=== PATIENT | female | born 1965 | race Caucasian/White ===

== ENCOUNTER 2019-03-18 11:19 | Inpatient (IN) ==
--- NOTE | 2019-03-18 11:44 | Diag Imaging Result Doc PS360 ---
EXAM: CT HEAD W/O CONTRAST 03/18/2019 HISTORY: stroke like symptoms TECHNIQUE: This exam was performed using automated exposure control, adjustment of mA or kV according to patient size, and/or use of iterative reconstruction technique. COMMENT: There is no evidence of mass effect, bleed, or abnormal extra-axial fluid collection. There is a small lacunar lucency in the globus pallidus on the left which was apparently present at the time the previous study. The calvarium is intact. The visualized paranasal sinuses are clear. Compared to 09/08/2017 there has been no significant change in the appearance of the brain. IMPRESSION: Minimal chronic ischemic change in the left basal ganglia. No evidence of acute intracranial disease. Electronically signed by Oskar Roblero 03/18/2019 11:41 AM
[2019-03-18] MEDS ORDERED: MORPHINE IV ONE ×2 (12:41→17:09)
[2019-03-18] MEDS ORDERED: ZOFRAN IV ONE (12:42)
[2019-03-18] MEDS ORDERED: NS 1,000 ML IV ONE ×2 (12:42→13:23)
--- NOTE | 2019-03-18 13:11 | EKG Report ---
Test Performed on : 03/18/2019 11:44:14 AM Test Reason : ED. NO EKG ORDER FOR MUSE Blood Pressure : / mmHG Vent. Rate : 088 BPM Atrial Rate : 088 BPM P-R Int : 150 ms QRS Dur : 068 ms QT Int : 362 ms P-R-T Axes : 064 038 039 degrees QTc Int : 438 ms Normal sinus rhythm. Normal ECG When compared with ECG of 30-SEP-2017 17:35, No significant change was found Unconfirmed Result
--- NOTE | 2019-03-18 14:23 | Diag Imaging Result Doc PS360 ---
CT LUMBAR SPINE W/O CONTRAST - 03/18/2019 INDICATION: BACK PAIN COMPARISON: None FINDINGS: Alignment is anatomic. No fracture or subluxation. Vertebral body heights and intervertebral disc spaces are preserved. There is some mild degenerative osteophytes at L3-L4 and L4-L5. No large disc bulge or herniation. No central canal stenosis. Soft tissues are clear. IMPRESSION: Early lumbar spondylosis. No acute disease. This exam was performed using automated exposure control, adjustment of mA or kV according to patient size, and/or use of iterative reconstruction technique Electronically signed by Xavier Browne 03/18/2019 2:21 PM
[2019-03-18] MEDS ORDERED: PERCOCET-5 PO ONE (15:23)
[2019-03-18 15:45] LABS: AGAP 8; BUN 7 mg/dL (8-22); CHLORIDE 124 mmol/L (98-107); COSMO 282; CREATININE 0.3 mg/dL (0.5-0.9); ESTIMATED GFR > 60; GLUCOSE 49 mg/dL (70-104); POTASSIUM 2.8 mmol/L (3.5-5.1); SODIUM 144 mmol/L (136-145); TCO2 12 mmol/L (25-35)
[2019-03-18 15:46] LABS: CALCIUM 4.5 mg/dL (8.8-10.2)
[2019-03-18] MEDS ORDERED: POTASSIUM CHLORIDE 20% LIQUID PO ONE (15:47)
[2019-03-18] MEDS ORDERED: CALCIUM GLUCONATE 1 GM in NS 50 ML IV ONE ×2 (15:47→18:56)
[2019-03-18] MEDS ORDERED: POTASSIUM CHLORIDE 10 MEQ in D5 LR 1,000 ML IV ONE (15:48)
[2019-03-18] MEDS ORDERED: D50W SYRINGE IV ONE (16:02)
--- NOTE | 2019-03-18 18:19 | PROVIDER DOCUMENTATION ---
This chart was entered by Fanny Webster Scribe, acting as scribe for Kole Augustin MD. HPI-Neurological Disorder - General Stated Complaint: stroke like symptoms Time Seen by Provider: 03/18/19 11:39 Source: patient, EMS (first response) Unable to obtain history due to:: urgency Allergies/Adverse Reactions: Patient Allergies Allergy/AdvReac Type Severity Reaction Status Date / Time ibuprofen Allergy HIVES Verified 11/13/17 18:38 latex Allergy Unknown Verified 11/13/17 18:38 NSAIDS (Non-Steroidal Allergy Unknown Verified 11/13/17 18:38 Anti-Inflamma Penicillins Allergy HIVES Verified 11/13/17 18:38 tomato Allergy Unknown Verified 05/12/18 07:31 tramadol Allergy HIVES Verified 11/13/17 18:38 Home Medications: Home Medication List Medication Instructions Recorded Confirmed Last Taken Type Cyanocobalamin (Vitamin B-12) 1,000 mcg IJ Q7D 05/11/18 03/18/19 Unknown History [Cyanocobalamin Injection] Oxycodone/APAP 5 mg/325 mg 1 each PO 4XDAY PRN 05/11/18 03/18/19 Unknown History [Percocet-5] Prazosin [Minipress] 1 mg PO QHS 05/11/18 03/18/19 Unknown History Albuterol Sulfate [Proair 90 mcg INHALATION Q6HR PRN 03/18/19 03/18/19 Unknown History Respiclick] Atorvastatin Calcium 40 mg PO HS 03/18/19 03/18/19 Unknown History Buspirone HCl 10 mg PO TID PRN 03/18/19 03/18/19 Unknown History Cholecalciferol (Vit D3) [Vitamin 5,000 unit PO DAILY 03/18/19 03/18/19 Unknown History D3] Clopidogrel Bisulfate [Clopidogrel] 75 mg PO DAILY 03/18/19 03/18/19 Unknown History Duloxetine HCl 60 mg PO BID 03/18/19 03/18/19 Unknown History Gabapentin 600 mg PO TID 03/18/19 03/18/19 Unknown History Hydroxyzine Pamoate 50 mg PO BID PRN 03/18/19 03/18/19 Unknown History Levetiracetam 500 mg PO BID 03/18/19 03/18/19 Unknown History Mirtazapine 15 mg PO HS 03/18/19 03/18/19 Unknown History Naproxen 500 mg PO Q12H 03/18/19 03/18/19 Unknown History Paliperidone [Paliperidone ER] 6 mg PO DAILY 03/18/19 03/18/19 Unknown History Phenobarbital 60 mg PO BID 03/18/19 03/18/19 Unknown History Quetiapine [Seroquel] 25 mg PO HS 03/18/19 03/18/19 Unknown History Rivaroxaban [Xarelto] 20 mg PO DAILY 03/18/19 03/18/19 Unknown History - History of Present Illness-Neuro Nature of Presenting Problem: 53 yowf presents to the ed via ems which was originally called in to dispatch as a seizure. pt has hx of seizures and sts she had a seizure and fell at home. it was unwitnessed by family. pt c/o CARVER and lumbar pain R>L. per ems when aos they noted facial drooping to left side and was concerned for CVA. pt had CVA in past and has left sided deficits. pt has no slurring of speech and pt still sts "It was a seizure" pt on exam sx are improving Headache Location: reports: occipital Severity: reports: mild Onset/Duration: reports: just prior to arrival Timing: reports: still present, improving Context: reports: seizure activity Character of Altered Mental Status: reports: seizure activity Any recent trauma/injury?: reports: minor, to head Character of Deficits: reports: new weakness (LUE). denies: impaired speech, impaired swallowing, decreased ability to stand, decreased ability to walk New weakness or altered sensation location:: reports: LUE Cognitive Baseline: alert, oriented x3 Gait Baseline: walks without assistance Associated Symptoms: reports: headache, neck/back pain (lumbar pain), seizures, weakness. denies: decreased ability to walk or stand, chest pain, fever/chills, nausea, sleepy, slurred speech, vision changes Similar Symptoms Previously?: Yes (hx of seizures) Recently seen or treated by another doctor?: No Review of Systems - Adult - REVIEW OF SYSTEMS - ADULT Constitutional: denies: chills, fever Eyes: reports: no symptoms reported Ears, Nose, Mouth & Throat: reports: no symptoms reported Cardiovascular: denies: chest pain, palpitations Respiratory: denies: cough, shortness of breath, wheezing Gastrointestinal: denies: abdominal pain, diarrhea, nausea, vomiting Genitourinary: reports: no symptoms reported Musculoskeletal: reports: see HPI. denies: neck pain Integumentary: reports: no symptoms reported Neurological: reports: see HPI, headache/migraines, seizure. denies: loss of balance, slurred speech, tremors Psychiatric: reports: no symptoms reported Endocrine: reports: no symptoms reported Hematologic/Lymphatic: reports: no symptoms reported Allergic/Immunologic: reports: no symptoms reported All Other Systems: Reviewed and Negative Past History - Adult - PAST MEDICAL HISTORY-ADULT Review of Records: reports: Old Records Reviewed, Nursing Assessment Review, Medications Reviewed, Social history reviewed & non-contributory. Major Childhood Illnesses: reports: denies history Cardiovascular: reports: denies history Respiratory: reports: denies history Gastrointestinal: reports: denies history Obstetrical/Gynecological: reports: denies history Genitourinary: reports: denies history Musculoskeletal: reports: denies history Neurological: reports: CVA, stroke deficits, Seizures/Epilepsy Psychiatric: reports: denies history Endocrine/Immune: reports: denies history Other Conditions: reports: denies history Additional History: breast cancer - PRIOR SURGERIES/PROCEDURES Surgical/Procedure History: reports: reviewed, not pertinent - IMMUNIZATION STATUS Childhood Immunizations: See Nurse Assessment Flu Vaccine: See Nurse Assessment - FAMILY HISTORY Family History: reviewed, not pertinent - SOCIAL HISTORY Smoking: cigarettes, greater than 1 pack/day Provider spent 3-5 mins advising pt. on dangers of tobacco.: Discussed manners t o quit use, and f/u contacts for add'l counseling. Substance Use: denies Living Situation: family Physical Exam- Neurological - Physical Exam-Neuro Initial Vital Signs Reviewed: Yes General Appearance: appears well, alert, no apparent distress, obese Eye Exam: bilateral eye: normal inspection, PERRL, EOMI HENMT: moist mucous membranes, normal ENT inspection Head Injury: swelling (rt occipital), tenderness (rt occiptal c/o CARVER). negative: ecchymosis, lacerations, raccoon eyes Neck: non-tender, full range of motion, normal inspection Respiratory: chest non-tender, lungs clear, normal breath sounds Cardiovascular: normal peripheral pulses, regular rate, rhythm Abdominal Exam: normal bowel sounds, soft, tenderness (generalized). 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 Exam: normal hearing, normal speech, PERRL, facial droop (mild lower left face), tongue deviation to L Motor/Sensory: no motor deficit, no sensory deficit, weak motor strength LUE (mild) Neurologic: abnormal cerebellar tests Integumentary: normal color, normal turgor, warm/dry Psych/Mental Status: normal mood/affect, normal thought content, normal thought process, oriented x 3 - Glascow Coma Scale Best Eye Response: (4) open spontaneously Best Verbal Response: (5) oriented Best Motor Response: (6) obeys commands Total Glascow Score: 15 Progress - PLAN OF CARE/RESULTS Progress/Plan/Lab Results: Vital Signs - 8 hr 03/18/19 13:05 03/18/19 13:40 03/18/19 14:45 Pulse Rate 79 86 77 Respiratory Rate 16 18 16 Blood Pressure 123/67 123/67 O2 Sat by Pulse Oximetry 96 97 99 03/18/19 15:00 03/18/19 15:15 03/18/19 15:30 Pulse Rate 77 75 82 Respiratory Rate 15 19 14 Blood Pressure O2 Sat by Pulse Oximetry 98 98 97 03/18/19 15:45 03/18/19 16:00 03/18/19 16:15 Pulse Rate 73 84 71 Respiratory Rate 13 14 14 Blood Pressure O2 Sat by Pulse Oximetry 98 97 99 03/18/19 16:30 03/18/19 16:45 Pulse Rate 75 75 Respiratory Rate 17 15 Blood Pressure O2 Sat by Pulse Oximetry 98 100 Laboratory Results - last 24 hr 03/18/19 03/18/19 03/18/19 11:52 14:29 17:00 Sodium 144 Potassium 2.8 L Chloride 124 H Carbon Dioxide 12 L Anion Gap 8 BUN 7 L Creatinine 0.3 L Estimated GFR/1.73 m2 > 60 BUN/Creatinine Ratio 23 Glucose 49 L POC Glucose 84 177 H D Calculated Osmolality 282 Calcium 4.5 L* Orders Category Date Time Status Cardiac Monitoring DIRECTED Care 03/18/19 14:00 Active Saline Loc NOW Care 03/18/19 14:[address] ANGIOGRAM HEAD/NECK [CT] Stat Exams 03/18/19 16:[address] HEAD W/O CONTRAST [CT] Stat Exams 03/18/19 11:[address] LUMBAR SPINE W/O CONTRAST [CT] Stat Exams 03/18/19 12:43 Completed BASIC METABOLIC PANEL [CHEM] Stat Lab 03/18/19 14:29 Completed CBC WITH ELECTRONIC DIFF [HEME] Stat Lab 03/18/19 18:12 Uncollected LACTATE, PLASMA [CHEM] Stat Lab 03/18/19 18:12 Uncollected MAGNESIUM [CHEM] Stat Lab 03/18/19 18:12 Uncollected 0.9% Sodium Chloride Inj [Ns] 1,000 ml Med 03/18/19 13:23 Discontinued IV 999 mls/hr Calcium Gluconate 1 gm Med 03/18/19 15:47 Discontinued 0.9% Sodium Chloride Inj [Ns] 50 ml IV NOW Dextrose 5%-Lact Ringers Inj [D5 Lr] 1,000 ml Med 03/18/19 15:48 Active Potassium Chloride 10 meq IV 100 mls/hr Dextrose 50% Syringe [D50w Syringe] Med 03/18/19 16:02 Discontinued 50 ml IV NOW ONE Morphine Med 03/18/19 12:41 Discontinued 4 mg IV NOW ONE Morphine Med 03/18/19 17:09 Discontinued 4 mg IV NOW ONE Ondansetron [Zofran] Med 03/18/19 12:42 Discontinued 4 mg IV NOW ONE Oxycodone/APAP 5 mg/325 mg [Percocet-5] Med 03/18/19 15:23 Discontinued 1 each PO NOW ONE Potassium Chloride 20% Liquid Med 03/18/19 15:47 Discontinued 40 meq PO NOW ONE EKG [EKG] Stat Ther 03/18/19 11:44 Draft no TPA given due to sx improving and pt has seizures @ 1149 Result Diagrams: 03/18/19 14:29 - REASSESSMENT Reassessment #1 Time Reassessed: 12:08 Status: improving Reassessment #2 Time Reassessed: 15:49 Status: unchanged (ct of spine came back w/o acute . ct head w/o bleed. pt had a seizure about 10;30 and i had hoped pt simply has exacerbation of her left weakness due to same pattern prior stroke, however; left face,arm and leg are more densely weak w/ poor effort against gravity. may well have had an ischemic stroke and is just out of window for tPA. is not on Xarelto as earlier history indicated. perhaps candidate for embolectomt abnd we just talked to transfer center [facility] for transfer. just found out BS is 49!, treating and Ca 4.5: treating, K is 2.8, treating.) Reassessment #3 Time Reassessed: 17:06 Status: improving (repeat fsbs is 144!. pt moving left arm, leg better, left face less droop. awake alert. c/o back pain. CT spine w/o acute changes.calling to admit as trnsfer to [facility] declined as unnecessary per Dr Hannon, neurology.) - EKG 1 Time of EKG reading by physician:: 11:44 EKG Read and Signed by:: Kole Augustin EKG Interpretation (*Must complete 3 of following elements*): Normal Rate: 88 Rhythm: nsr Jackson: normal QRS: normal [place] Interval: normal ST Wave: normal - CT/MRI 1 CT Study: Head Impression: See EMR Report (EXAM: CT HEAD W/O CONTRAST 03/18/2019 HISTORY: stroke like symptoms TECHNIQUE: This exam was performed using automated exposure control, adjustment of mA or kV according to patient size, and/or use of iterative reconstruction technique. COMMENT: There is no evidence of mass effect, bleed, or abnormal extra-axial fluid collection. There is a small lacunar lucency in the globus pallidus on the left which was apparently present at the time the previous study. The calvarium is intact. The visualized paranasal sinuses are clear. Compared to 09/08/2017 there has been no significant change in the appearance of the brain. IMPRESSION: Minimal chronic ischemic change in the left basal ganglia. No evidence of acute intracranial disease. Electronically signed by Oskar Roblero 03/18/2019 11:41 AM 03/18/19 1141 Interpreting Physician: Oskar Roblero MD Dictated Date/Time: 03/18/19 1130 cc: Kole Augustin MD; None,PCP) 2 CT Study: Lumbar Spine Impression: See EMR Report (CT LUMBAR SPINE W/O CONTRAST - 03/18/2019 INDICATION: BACK PAIN COMPARISON: None FINDINGS: Alignment is anatomic. No fracture or subluxation. Vertebral body heights and intervertebral disc spaces are preserved. There is some mild degenerative osteophytes at L3-L4 and L4-L5. No large disc bulge or herniation. No central canal stenosis. Soft tissues are clear. IMPRESSION: Early lumbar spondylosis. No acute disease. This exam was performed using automated exposure control, adjustment of mA or kV according to patient size, and/or use of iterative reconstruction technique Electronically signed by Xavier Browne 03/18/2019 2:21 PM 03/18/19 1421 Interpreting Physician: Xavier Browne MD Dictated Date/Time: 03/18/19 1420 cc: Kole Augustin MD; None,PCP) - CONSULTS/PCP/HOSPITALIST Notification #1 *Consult/PCP/Hospitalist*: transfer center Time Discussed: 16:01 (spokewith dr hannon and sts they will not accept and pt can stay here and receive the same tx) Reason/Comments: phone consult Consult Disposition: other (dr hannon tell me pt is not a candicate for tPA because of seizures and not a candidate for embolectomy if a thrombus because of seizure.) #2 Consult: DAVID GAMEZ IN ER Time Discussed: 16:19 Consult Disposition: other (ORDER CTA BRAIN PLEASE) #3 Consult: renuak gamez/dr matta Time Discussed: 18:17 (will see, order lactate,cbc,mag) Departure - Departure Date of Disposition Decision: 03/18/19 Time of Disposition Decision: 18:18 DIAGNOSIS: Weakness of left upper extremity, Weakness of left lower extremity, Seizure, Fall, Lumbar contusion, Hypoglycemia, Hypocalcemia, Hypokalemia Disposition: ADMITTED INPATIENT 09 Certified Medical Emergency: Emergent Condition: Stable Referrals and Follow-Ups: None,PCP [Primary Care Provider] - - Critical Care Note This patient required my direct & personal management of CC.: Yes Total Time (mins): 30 Critical Care Statement: This patient required my direct personal management to treat or rule out processes, the absence of which, could potentiallly result in sudden, clinically significant life or limb threatening deterioration. Comments: consideration tPA, consideration embolectomy, discussin with dr Hannon, neurolgy. review of ct scans Attestation - Physician/ ABDULKADIR Attestation Patient care was provided by Advanced Practice Provider:: No The physician spent face to face time with patient:: Yes Advanced Practice Provider documentation review:: Supervising physician onsite and consulted in the evaluation and care of this patient. The physician did have a face to face encounter with the patient. - NIH Stroke Scale NIH Type: Initial Evaluation Level of Consciousness: 0-Alert LOC Questions (ask month and age): 0-Answers Both Correctly LOC Commands (ask to open & close eyes;make a fist, let go): 0-Obeys Both Correctly Best Gaze (horizontal eye movement): 0-Normal Visual (use finger movement, counting or visual threat): 0-No Visual Loss Facial Palsy (show teeth or raise eyebrows & close eyes tght: 2-Partial Paralysis Motor Function-left arm: 2-Some Effort Against Paradise Motor Function-right arm: 0-Normal Motor Function-left le-Some Effort Against [place] Motor Function-right le-Normal Limb Ataxia(wrutcf-[id number]-roqqns, or heel to hurd): 0-No Ataxia Sensory(pin prick to face,arms,trunk,legs-compare side/side): 0-No Ataxia Best Language(name item/read sentence.Ex-Down to Earth): 0-No Aphasia Dysarthria(Pt read words or say words Ex.Mama,Tip-Top,Thanks: 0-Normal Articul ation Extinction and Inattention: 0-Normal NIH Total Score: 6 This chart was documented by the indicated scribe, (Fanny Webster, Cinthia) and accurately reflects the services I performed and decisions made by me, Kole Augustin MD, as attested by the provider's signature.
--- NOTE | 2019-03-18 18:39 | Diag Imaging Result Doc PS360 ---
CT ANGIOGRAM HEAD/NECK - 03/18/2019 INDICATION: dense weakness left face/arm/leg TECHNIQUE: Axial CT images were obtained after administering intravenous contrast. Three-dimensional angiographic images were generated. COMPARISON: None FINDINGS: Normal aortic arch and great vessels. There is a device in the anterior left chest wall with some wire-like electrodes. These extend to the left lobe of the thyroid. The nature of these wires is unclear. The great vessels of the neck are patent. No aneurysm or stenosis. The intracranial vessels are all normal. No aneurysm or stenosis. Intracranial images all appear grossly normal. IMPRESSION: Negative exam. This exam was performed using automated exposure control, adjustment of mA or kV according to patient size, and/or use of iterative reconstruction technique Electronically signed by Xavire Browne 03/18/2019 6:36 PM
[2019-03-18 18:46] LABS: BASO# 0.03 X1000 (0.0-0.2); BASO% 0.5 % (0.0-0.8); EOS% 4.7 % (0.0-10.0); HEMATOCRIT 41.7 % (37.0-47.0); HEMOGLOBIN 13.7 g/dL (12.0-16.0); IMM GRAN# 0.05 X1000 (0.0-0.04); IMM GRAN% 0.8 % (0.0-0.5); LYMPH# 2.09 X1000 (1.2-3.4); MCH 29.6 PG (27-31); MCHC 32.9 g/dL (33-37); MCV 90.1 FL (81-99); MONO# 1.05 X1000 (0.11-0.59); MONO% 16.6 % (1.7-9.3); MPV 9.6 FL (7.4-10.4); NEUT# 2.82 X1000 (1.4-6.5); NEUT% 44.4 % (42.2-75.2); PLT 402 X1000 (130-400); RBC 4.63 XMIL (4.2-5.4); RDW 14.8 % (11.5-14.5); WBC 6.34 X1000 (4.8-10.8)
[2019-03-18] MEDS ORDERED: TYLENOL PO PRN (18:55)
[2019-03-18] MEDS ORDERED: PERCOCET-5 PO PRN (18:55)
[2019-03-18] MEDS ORDERED: BUSPAR PO PRN (18:55)
[2019-03-18] MEDS ORDERED: VENTOLIN HFA INH PRN (18:55)
[2019-03-18] MEDS ORDERED: ATARAX PO PRN ×2 (18:55→20:45)
[2019-03-18] MEDS ORDERED: NAPROSYN PO SCH (19:00)
[2019-03-18] MEDS ORDERED: MAGNESIUM SULFATE 4 GM/S.W.I. 4 GM/100 ML IVPB IV ONE (19:18)
--- NOTE | 2019-03-18 19:36 | HISTORY AND PHYSICAL ---
HISTORY OF PRESENT ILLNESS: Ms. Peraza states she has had seizures since she has been a young girl. She had a vagal stimulator put in several years ago in [place]. She has been diagnosed with narcolepsy. She, I think, has been told she has diabetes in the past, but she is not sure about that. She does not describe any surgeries other than the vagal stimulator. She does not remember much about what happened today. She just noticed that she woke up on the floor. They told her she had seizures. She has a history of having a couple of seizures every month, but it has been 3 or 4 weeks since she had her last one. ALLERGIES: She is allergic to ibuprofen, latex, nonsteroidal anti-inflammatories, and some other like tramadol. She says she is allergic to aspirin. She is allergic to Tylenol, says it makes her break out in blisters. FAMILY HISTORY: She states family history is unremarkable for seizures or neurologic problems, but she was born with a seizure disorder. SOCIAL HISTORY: Denies alcohol or illicit drugs. REVIEW OF SYSTEMS: She does not feel like she has changed in her weight. No fever or chills. Cardiovascular: No chest pain or tachy palpitation. Respiratory: No increased work of breathing or dyspnea. Gastrointestinal/genitourinary: No real complaints. Endocrinologic/hematologic: No significant history. PHYSICAL EXAMINATION: GENERAL: Today in the emergency room, she is awake, alert, oriented x3, pleasant. VITAL SIGNS: Pulse is 75, respirations 15, blood pressure 123/67. Weight is 220 pounds. HEENT: Pupils are equal and round. Conjunctiva pink. Sclerae clear. No oral or nasal lesions. I do not see any trauma to the side of her mouth or tongue. LUNGS: Clear in all lung sam. CARDIOVASCULAR: Regular rhythm and rate without murmur or S3. CVP less than 6 cm. No distended neck veins. Carotid, radial, and femoral pulses 2+ and symmetrical. ABDOMEN: Soft. SKIN: Warm and dry. EXTREMITIES: No pedal edema. SKIN: No sign of skin rash. LABORATORY AND DIAGNOSTIC DATA: White count 6340, hematocrit 41, platelet count 402,000. Sodium 144, potassium 2.8, chloride 124, bicarbonate 12, BUN 7, creatinine 0.3. Her calcium was 4.5, so we will give some calcium gluconate, will give 2 amps right now, and then we will give another 2 amps in the morning. Her CT of her head without contrast, minimal chronic ischemic change in the left basal ganglia, no evidence of acute intracranial disease, no sign of bleed. Head and neck CT, negative exam. Lumbar spine CT, early lumbar spondylosis, but no sign of any fracture. She hit pretty hard, she said, and her back is sore and hurting, and her neck is sore as well. ASSESSMENT: History of epilepsy, breakthrough seizure. PLAN: Not sure how well she had been taking her medications, but she is on Keppra 500 mg twice a day. She is on gabapentin 600 mg t.i.d. She takes phenobarbital 60 mg p.o. b.i.d. We are going to continue all of those. She takes BuSpar 10 mg t.i.d. p.r.n. She takes Percocet 5 four times a day as needed, will continue that. She takes her Seroquel 25 mg at bedtime. So, we will make sure we continue her home medications. She is also on mirtazapine 15 mg at bedtime. Not sure what she is on Xarelto, but she takes Xarelto and Plavix, but will continue those. She is on vitamin D3 and will continue that as well. She takes vitamin B12 injections, I believe once a week 1000 mcg, and will continue those. We will ask Neurology to kind of help sort this out. We are going to replenish her potassium. Potassium is 2.8. We will give her 40 mEq of KCl p.o. twice a day. Her renal function is good, so we will give her that. We did not check a magnesium level, so we need to check that tonight and supplement that if that is low. We will check her thyroid, B12, folate, T4, and TSH. I think it would be worth checking a CK and a troponin in the morning. cc: Vincent Chao MD
[2019-03-18] MEDS ORDERED: NAPROSYN ONE (20:36)
[2019-03-18] MEDS: NEURONTIN PO SCH (20:48)
[2019-03-18] MEDS: KEPPRA PO SCH (20:48)
[2019-03-18] MEDS: KLOR-CON PO SCH (20:48)
[2019-03-18] MEDS: REMERON PO SCH (20:50)
[2019-03-18] MEDS: LIPITOR PO SCH (20:51)
[2019-03-18] MEDS: MINIPRESS PO SCH (20:51)
[2019-03-18] MEDS: SEROQUEL PO SCH (21:02)
[2019-03-18] MEDS: PHENOBARBITAL PO SCH (22:31)
[2019-03-18] MEDS: CYMBALTA PO SCH (22:31)
[2019-03-19] MEDS ORDERED: PERCOCET-10 PO ONE (02:37)
[2019-03-19 06:15] LABS: INR 1.12; PROTIME 14.6 Seconds (11.0-16.0)
[2019-03-19 07:01] LABS: BASO# 0.03 X1000 (0.0-0.2); BASO% 0.3 % (0.0-0.8); EOS# 0.43 X1000 (0.0-0.7); EOS% 3.7 % (0.0-10.0); HEMATOCRIT 36.7 % (37.0-47.0); HEMOGLOBIN 11.6 g/dL (12.0-16.0); IMM GRAN# 0.03 X1000 (0.0-0.04); IMM GRAN% 0.3 % (0.0-0.5); LYMPH# 1.84 X1000 (1.2-3.4); LYMPH% 15.6 % (20.5-51.1); MCH 29.7 PG (27-31); MCHC 31.6 g/dL (33-37); MCV 94.1 FL (81-99); MONO# 1.51 X1000 (0.11-0.59); MONO% 12.8 % (1.7-9.3); MPV 9.3 FL (7.4-10.4); NEUT# 7.94 X1000 (1.4-6.5); NEUT% 67.3 % (42.2-75.2); PLT 348 X1000 (130-400); RDW 14.8 % (11.5-14.5); WBC 11.78 X1000 (4.8-10.8)
--- NOTE | 2019-03-19 08:13 | EKG Report ---
Test Performed on : 03/19/2019 07:01:15 AM Test Reason : chest pain Blood Pressure : / mmHG Vent. Rate : 085 BPM Atrial Rate : 085 BPM P-R Int : 168 ms QRS Dur : 072 ms QT Int : 384 ms P-R-T Axes : 048 052 044 degrees QTc Int : 456 ms Normal sinus rhythm. Normal ECG When compared with ECG of 18-MAR-2019 11:44, (Unconfirmed) No significant change was found Confirmed by Rubi GUERRA, Lázaro Aldrich ([id number]) on 03/19/2019 1:52:01 PM
[2019-03-19] MEDS: PHENOBARBITAL PO SCH ×2 (09:00→20:08)
[2019-03-19] MEDS: NEURONTIN PO SCH ×3 (09:00→20:08)
[2019-03-19] MEDS ORDERED: CALCIUM GLUCONATE 2 GM in NS 100 ML IV ONE (09:00)
[2019-03-19] MEDS: CYMBALTA PO SCH ×2 (09:03→20:08)
[2019-03-19] MEDS: NAPROSYN PO SCH ×2 (09:03→19:41)
[2019-03-19] MEDS: KLOR-CON PO SCH ×2 (09:03→20:08)
[2019-03-19] MEDS: PLAVIX PO SCH (09:03)
[2019-03-19] MEDS: VITAMIN D PO SCH (09:03)
[2019-03-19] MEDS: KEPPRA PO SCH ×2 (09:04→20:08)
[2019-03-19] MEDS: XARELTO PO SCH (09:05)
[2019-03-19] MEDS: NORCO-7.5 PO PRN ×3 (09:42→19:40)
[2019-03-19] MEDS: INVEGA PO SCH (09:42)
[2019-03-19 10:32] LABS: AGAP 11; ALB/GLOB RATIO 1.3; ALBUMIN 3.4 g/dL (3.5-5.0); ALKALINE PHOSPHATASE 107 U/L (32-104); BUN 12 mg/dL (8-22); CHLORIDE 102 mmol/L (98-107); CK TOTAL 70 U/L (24-173); COSMO 269; CREATININE 0.8 mg/dL (0.5-0.9); ESTIMATED GFR > 60; GLUCOSE 115 mg/dL (70-104); GOT 18 U/L (10-30); GPT 11 U/L (10-36); POTASSIUM 4.4 mmol/L (3.5-5.1); SODIUM 134 mmol/L (136-145); TCO2 21 mmol/L (25-35); TOTAL BILIRUBIN 0.15 mg/dL (0.20-1.00)
[2019-03-19] MEDS: LIPITOR PO SCH (20:08)
[2019-03-19] MEDS: MINIPRESS PO SCH (20:08)
[2019-03-19] MEDS: SEROQUEL PO SCH (20:09)
[2019-03-19] MEDS: REMERON PO SCH (20:09)
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
[2019-03-20] MEDS: NORCO-7.5 PO PRN ×3 (03:10→18:08)
[2019-03-20] MEDS: ZOFRAN IV PRN ×2 (03:11→11:44)
[2019-03-20] MEDS: NAPROSYN PO SCH ×2 (06:08→18:09)
[2019-03-20] MEDS: PLAVIX PO SCH (08:34)
[2019-03-20] MEDS: XARELTO PO SCH (08:34)
[2019-03-20] MEDS: PHENOBARBITAL PO SCH (08:34)
[2019-03-20] MEDS: NEURONTIN PO SCH ×2 (08:34→13:40)
[2019-03-20] MEDS: KLOR-CON PO SCH (08:34)
[2019-03-20] MEDS: CYMBALTA PO SCH (08:34)
[2019-03-20] MEDS: VITAMIN D PO SCH (08:34)
[2019-03-20] MEDS: KEPPRA PO SCH (08:35)
[2019-03-20] MEDS: INVEGA PO SCH (09:10)
--- NOTE | 2019-03-20 13:23 | PROGRESS NOTE ---
DATE: 03/20/2019 SUBJECTIVE: Ms. Peraza has not had any further seizures. She is complaining of right-sided kind of headache. OBJECTIVE: Vital signs: Temperature 98.6 degrees, pulse 80, respirations 15, blood pressure 120/62. HEENT: Pupils equal and round. Lungs: Lungs are clear in all lung sam. Cardiovascular: Regular rhythm and rate without murmur or S3. Abdomen: Abdomen is soft. Skin: Skin is warm and dry. ASSESSMENT AND PLAN: Chronic seizure disorder with apparent breakthrough seizure. Patient has a vagal nerve stimulator, inconsistent left-sided weakness on exam. May be an exaggeration of Agustin's paralysis or could be functional. Multiples psychiatric diseases. Breakthrough seizure most likely due to reported misses in AD doses over the last few days, and this is a recurring issue. The patient's chart was reviewed. Seizure medication and poor compliance to levetiracetam. So switching her from Keppra to Broviac starting at dose 50 mg b.i.d. She will need someone to evaluate her vagal nerve stimulator. She has been on phenobarbital chronically for years, and Dr. Medina reviewed the driving loss. We will move her to a regular floor and see if maybe she can be discharged tomorrow. cc: Vincent Chao MD
[2019-03-20 15:30] LABS: AGAP 12; ALB/GLOB RATIO 1.3; ALBUMIN 3.8 g/dL (3.5-5.0); ALKALINE PHOSPHATASE 122 U/L (32-104); BUN 14 mg/dL (8-22); CALCIUM 8.6 mg/dL (8.8-10.2); CHLORIDE 100 mmol/L (98-107); COSMO 276; CREATININE 0.9 mg/dL (0.5-0.9); ESTIMATED GFR > 60; GLUCOSE 135 mg/dL (70-104); GOT 27 U/L (10-30); GPT 17 U/L (10-36); MAGNESIUM 1.9 mg/dL (1.5-2.7); POTASSIUM 5.1 mmol/L (3.5-5.1); SODIUM 137 mmol/L (136-145); TCO2 25 mmol/L (25-35); TOTAL BILIRUBIN < 0.15 mg/dL (0.20-1.00); TOTAL PROTEIN 6.8 g/dL (6.3-8.3)
[2019-03-20 15:43] LABS: T4 6.29 ug/dL (4.60-12.00)
[2019-03-20 15:45] LABS: TSH 7.52 uIUmL (0.27-4.20)
[2019-03-21] MEDS: CYMBALTA PO SCH ×3 (00:01→22:54)
[2019-03-21] MEDS: PHENOBARBITAL PO SCH ×3 (00:01→22:55)
[2019-03-21] MEDS: REMERON PO SCH ×2 (00:01→22:55)
[2019-03-21] MEDS: SEROQUEL PO SCH ×2 (00:01→22:55)
[2019-03-21 04:22] LABS: AGAP 9; BUN 15 mg/dL (8-22); CALCIUM 7.9 mg/dL (8.8-10.2); CHLORIDE 100 mmol/L (98-107); COSMO 269; CREATININE 0.8 mg/dL (0.5-0.9); ESTIMATED GFR > 60; GLUCOSE 103 mg/dL (70-104); POTASSIUM 4.9 mmol/L (3.5-5.1); SODIUM 134 mmol/L (136-145); TCO2 25 mmol/L (25-35)
[2019-03-21] MEDS: NAPROSYN PO SCH ×2 (06:09→18:32)
[2019-03-21] MEDS: NORCO-7.5 PO PRN ×4 (08:19→22:55)
[2019-03-21] MEDS: INVEGA PO SCH (08:19)
[2019-03-21] MEDS: KEPPRA PO SCH ×3 (08:19→22:55)
[2019-03-21] MEDS: KLOR-CON PO SCH ×3 (08:19→22:54)
[2019-03-21] MEDS: VITAMIN D PO SCH (08:19)
[2019-03-21] MEDS: XARELTO PO SCH (08:20)
[2019-03-21] MEDS: PLAVIX PO SCH (08:20)
[2019-03-21] MEDS: NEURONTIN PO SCH ×4 (08:20→22:55)
[2019-03-21] MEDS: FLEXERIL PO PRN (12:56)
--- NOTE | 2019-03-21 13:30 | PROGRESS NOTE ---
DATE: 03/21/2019 She had come in yesterday and had a seizure. States that she had a seizure. She has had a vagal stimulator placed in [place] and she has been diagnosed with narcolepsy. She feels better today but she is complaining of pain in her right back, right above the posterior sacral line and it is its touchy. It seems to be muscular pain with muscle spasm. I will let her have a muscle relaxer. She is asking for a little higher dose of pain medications, which I do not want to do at this point. She has not had any further repeated seizures. She is eating well. Bowels are moving. OBJECTIVE: Temperature 98.8 degrees, pulse 87, respirations 17, blood pressure 110/63. Pupils are equal round. Lungs: Clear in all lung sam. Cardiovascular: Regular rhythm and rate without murmur or S3. Urine output is 5400 mL. Blood sugar 93, 115, 104, 86. ASSESSMENT AND PLAN: 1. Chronic seizure disorder with apparent breakthrough seizure. She has a vasal nerve stimulator. 2. Inconsistent left-sided weakness exam she appears to be symmetrical, moving all extremities well. 3. Multiple psychiatric diagnoses in the past. 4. Appears to have musculoskeletal discomfort in the right lower back. I will let her try a muscle relaxer using cyclobenzaprine and looking over her orders, she is on Minipress 1 mg at bedtime, she is on Lipitor 40 mg at bedtime, BuSpar 10 mg t.i.d. p.r.n., vitamin D3 5000 units daily, Plavix 75 mg a day, to start her on some Flexeril p.r.n., Cymbalta 60 mg b.i.d., Neurontin 600 mg t.i.d., hydrocodone 7.5 mg q.4 hours p.r.n., Atarax 50 mg b.i.d. p.r.n., Keppra 500 mg b.i.d. and Remeron 15 mg at bedtime, Naprosyn 500 mg q.12, paliperidone which is Invega 6 mg a day, she takes Seroquel 25 mg at bedtime, she is on Xarelto 20 mg a day. cc: Vincent Chao MD
[2019-03-21] MEDS: ZOFRAN IV PRN (17:32)
[2019-03-21] MEDS: LIPITOR PO SCH ×2 (22:55)
[2019-03-21] MEDS: MINIPRESS PO SCH ×2 (22:55)
[2019-03-22] MEDS: NAPROSYN PO SCH ×3 (05:38→20:39)
[2019-03-22] MEDS: FLEXERIL PO PRN ×2 (05:38→20:39)
[2019-03-22] MEDS: NORCO-7.5 PO PRN ×3 (05:38→20:39)
[2019-03-22] MEDS: NEURONTIN PO SCH ×3 (08:30→20:38)
[2019-03-22] MEDS: VITAMIN D PO SCH (08:30)
[2019-03-22] MEDS: KLOR-CON PO SCH ×2 (08:31→20:38)
[2019-03-22] MEDS: PHENOBARBITAL PO SCH ×2 (08:31→20:39)
[2019-03-22] MEDS: INVEGA PO SCH (08:31)
[2019-03-22] MEDS: CYMBALTA PO SCH ×2 (08:31→20:39)
[2019-03-22] MEDS: XARELTO PO SCH (08:31)
[2019-03-22] MEDS: PLAVIX PO SCH (08:31)
[2019-03-22] MEDS: KEPPRA PO SCH (08:31)
[2019-03-22] MEDS: ZOFRAN IV PRN (10:12)
[2019-03-22] MEDS ORDERED: ZOFRAN PO PRN (11:14)
--- NOTE | 2019-03-22 13:14 | PROGRESS NOTE ---
DATE: 03/22/2019 SUBJECTIVE: No major overnight events. The patient reports that she may have had a seizure this morning. She initially stated it was unwitnessed, but subsequently stated that the nurse or nurse dental laboratory technician witnessed the event. She is asking for pain medications. Otherwise, no complaints. OBJECTIVE: Vital Signs: Afebrile. Vital signs stable. General: Ms. Peraza is supine in bed. Awake, alert, oriented. Speech fluent. No language disturbance. Appropriately conversant. HEENT: Pupils equal, reactive. Gaze conjugate. Forward ocular movements are full. Face symmetric with equal activation. No dysarthria. Musculoskeletal: She again has inconsistent left arm and leg weakness on exam. She requires encouragement, and does provide full strength on her left side that is equal to the right side. LABORATORY DATA: Labs from yesterday were reviewed. Sodium 134, BUN and creatinine normal, calcium 7.9. ASSESSMENT AND PLAN: 1. Apparent chronic seizure disorder with breakthrough seizure on admission. The patient does have a vagal nerve stimulator, which was placed some years ago in [place]. She has not had any followup in over 2 years. 2. Inconsistent left-sided weakness. Again, maybe exaggeration of a Agustin's paralysis or could be functional. 3. Multiple psychiatric diagnoses, including suicidal and homicidal ideations amongst others in the past. She was, I believe, at [facility] in 05/2018. I have switched her Keppra to Briviact, starting dose 50 mg twice daily. First dose has been given. Lets see how she does. I will order a routine electroencephalogram as well today. Nursing staff reports that the patient has been very inconsistent with what she has been reporting during her time here on the floor. She confirms that no one has witnessed or documented any seizure activity. I again declined to provide narcotic medication to the patient after she requested this. I will defer to the primary team in this regard. cc: Malathi Alvarez MD [facility]
[2019-03-22] MEDS: BRIVIACT PO SCH ×2 (15:46→20:38)
--- NOTE | 2019-03-22 17:13 | PROGRESS NOTE ---
DATE: 03/22/2019 She is complaining mainly of back pain would like more pain medicine. She did state she had another seizure this morning. I think Dr. Acosta was going to change on her seizure medications. Temperature 98 degrees, pulse 87, respirations 15, blood pressure 116/60. Pupils are equal and round. Lungs are clear in all lung sam. Cardiovascular. Regular rhythm, rate without murmur, S3. Abdomen is soft. Skin is warm and dry. Urine output is 3400 mL. ASSESSMENT AND PLAN: 1. Apparent chronic seizure disorder, breakthrough seizure on admission. Patient does have vagal nerve stimulator and had another apparent breakthrough seizure today. 2. Inconsistent left-sided weakness saturation present time moving left side fine. 3. Multiple psychiatric diagnoses in the past. 4. Chronic pain syndrome. She does have lower back pain and musculoskeletal pain. I think we need to get her out of bed and start ambulating and see if we can help her with some of this pain. I told her I was very hesitant to go up on any of her opioid pain medicines so will get physical therapy and start moving around and sitting her up . cc: Vincent Chao MD
[2019-03-22] MEDS: LIPITOR PO SCH (20:38)
[2019-03-22] MEDS: MINIPRESS PO SCH (20:38)
[2019-03-22] MEDS: SEROQUEL PO SCH (20:38)
[2019-03-22] MEDS: REMERON PO SCH (20:38)
[2019-03-23] MEDS: NORCO-7.5 PO PRN ×2 (05:21→11:51)
[2019-03-23] MEDS: NAPROSYN PO SCH ×2 (05:22→05:59)
[2019-03-23] MEDS: VITAMIN D PO SCH (09:12)
[2019-03-23] MEDS: PHENOBARBITAL PO SCH (09:13)
[2019-03-23] MEDS: NEURONTIN PO SCH (09:13)
[2019-03-23] MEDS: CYMBALTA PO SCH (09:13)
[2019-03-23] MEDS: XARELTO PO SCH (09:13)
[2019-03-23] MEDS: PLAVIX PO SCH (09:13)
[2019-03-23] MEDS: KLOR-CON PO SCH (09:14)
[2019-03-23] MEDS: BRIVIACT PO SCH (09:14)
[2019-03-23] MEDS: INVEGA PO SCH (09:14)
[2019-03-23 11:47] VITALS: BP 113/60
--- NOTE | 2019-03-23 14:55 | EEG REPORT ---
DATE: 03/22/2019 REFERRING PHYSICIAN: Malathi Alvarez M.D. RETAIL STORE ASSISTANT: Ramone Mayorga. BACKGROUND INFORMATION/TECHNIQUE: This is a digitally recorded routine EEG with video. HISTORY: A 53-year-old female with a history of seizure disorder and VNS. She was admitted for a witnessed seizure event. EEG is ordered to detect evidence of seizures. Medications include Percocet, Seroquel, phenobarbital, [place], gabapentin, Invega, duloxetine, hydroxyzine, Flexeril, Broviac. EEG FINDINGS: The posteriorly dominant rhythm is 7 to 8 hertz. The background consists of mixed alpha, beta, and theta range frequencies. No definite persistent focal slowing. No epileptiform discharges. No seizures. Hyperventilation was not performed. Photic stimulation induces a normal driving response. No definite drowsiness patterns. Stage II sleep is not seen. EKG demonstrates regular RR intervals. IMPRESSION AND CLINICAL CORRELATION: Abnormal routine electroencephalogram due to mild diffuse slowing, suggestive of a mild nonspecific encephalopathy. No epileptiform discharges or seizures seen on the current study. This does not rule out an underlying seizure disorder. Generalized slowing is a nonspecific findings that can be seen in processes that diffusely affect the cerebrum, including toxic, metabolic, pharmacologic, post hypoxic, or infectious etiologies. cc: Malathi Alvarez MD
--- NOTE | 2019-03-24 13:29 | DISCHARGE SUMMARY ---
ADMISSION DATE: 03/18/2019 DISCHARGE DATE: 03/23/2019 DISPOSITION: Home. FOLLOW-UP: 1. Patient's PCP. 2. Dr. Tapia/Dr. Alvarez. CONSULTATION DURING THIS ADMISSION: Neurology was consulted. Patient was seen by Dr. Alvarez. INVASIVE PROCEDURES DONE DURING THIS ADMISSION: None. IMAGING STUDIES OF SIGNIFICANCE: 1. A CT scan of the head showed minimal chronic ischemic changes in the left basal ganglia. 2. A lumbar CT scan showed an early lumbar spondylosis. No acute disease. 3. Head and neck CT scan was negative. ADMISSION DIAGNOSIS: History of epilepsy with breakthrough seizures. DIAGNOSES AT THE TIME OF DISCHARGE: 1. Seizure disorder with breakthrough seizures on admission. 2. Chronic pain syndrome. 3. Hypoglycemia on admission. 4. History of diabetes mellitus. The patient refers that she was on metformin and shots for her diabetes. However, none of these medications is documented on her home medication list. 5. Bipolar disorder with occasional psychotic features. 6. Generalized anxiety disorder. 7. Posttraumatic stress disorder. 8. Multiple psychotropic medications (polypharmacy). 9. Hypertension. 10. Dyslipidemia. 11. Suspected subclinical hypothyroidism. Patient is advised to follow up with her airline manager to repeat thyroid function test in about a month. PRESENTING COMPLAINT: Seizures. HISTORY OF PRESENTING COMPLAINT: Ms. Peraza is a 53-year-old female with a history of seizure disorder, who even has a vagal stimulator placed several years ago in [place], also diagnosed with narcolepsy and multiple psychiatric disorders, who came to the emergency department because of seizures. The patient also refers that her glucose was extremely low, that she normally takes metformin and shots for her diabetes; none of these was listed on her medication list. In any case, on admission there was not any documentation of seizures during the hospital course. The patient was evaluated by Neurology. EEG was done which did not show any epileptiform discharges. Ms. Peraza's medications were changed from Keppra to Brivaracetam by the neurologist and was observed overnight. This morning, she refers to be feeling a lot better. Her vitals are stable. Blood pressure is 113/60 pulse of 97, respiration is 16, temperature is 98 degrees. The patient's physical exam is completely unremarkable. We think she is fairly stable for discharge. She did request prescription for pain medication, which I told her to follow up with her primary care for them to write that up for her. She also requested a walker and bedside commode. However, I think she is physically strong enough to perform any activity. She has been evaluated by physical therapy. The patient has been advised to follow up with physical therapy outpatient. At the time of the discharge, Ms. Peraza was completely asymptomatic. No more seizures. TIME SPENT FOR DISCHARGE: 35 minutes. cc: Brooks Jeronimo MD MTDD
== END 2019-03-23 13:13 | disposition home or self-care (01) | DRG 101 ==
LOC: SUPCPDRO → ED 11:19 → SUATTDRO 20:18 → EDIPHOLD 20:18 → ICU 22:44 → 1N 03-20 17:53
PROVIDERS: ATTEND Internal Medicine

== ENCOUNTER 2019-03-28 14:13 | Inpatient (IN) ==
--- NOTE | 2019-03-28 14:35 | PROVIDER DOCUMENTATION ---
HPI-General Adult - General Chief Complaint: Seizure Stated Complaint: Seizure Time Seen by Provider: 03/28/19 14:35 Source: patient Allergies/Adverse Reactions: Patient Allergies Allergy/AdvReac Type Severity Reaction Status Date / Time ibuprofen Allergy HIVES Verified 11/13/17 18:38 latex Allergy Unknown Verified 11/13/17 18:38 NSAIDS (Non-Steroidal Allergy Unknown Verified 11/13/17 18:38 Anti-Inflamma Penicillins Allergy HIVES Verified 11/13/17 18:38 tomato Allergy Unknown Verified 05/12/18 07:31 tramadol Allergy HIVES Verified 11/13/17 18:38 Home Medications: Home Medication List Medication Instructions Recorded Confirmed Last Taken Type Cyanocobalamin (Vitamin B-12) 1,000 mcg IJ Q7D 05/11/18 03/18/19 Unknown History [Cyanocobalamin Injection] Oxycodone/APAP 5 mg/325 mg 1 each PO 4XDAY PRN 05/11/18 03/18/19 Unknown History [Percocet-5] Prazosin [Minipress] 1 mg PO QHS 05/11/18 03/18/19 Unknown History Albuterol Sulfate [Proair 90 mcg INHALATION Q6HR PRN 03/18/19 03/18/19 Unknown History Respiclick] Atorvastatin Calcium 40 mg PO HS 03/18/19 03/18/19 Unknown History Buspirone HCl 10 mg PO TID PRN 03/18/19 03/18/19 Unknown History Cholecalciferol (Vit D3) [Vitamin 5,000 unit PO DAILY 03/18/19 03/18/19 Unknown History D] Clopidogrel Bisulfate [Clopidogrel] 75 mg PO DAILY 03/18/19 03/18/19 Unknown History Duloxetine HCl 60 mg PO BID 03/18/19 03/18/19 Unknown History Gabapentin 600 mg PO TID 03/18/19 03/18/19 Unknown History Hydroxyzine Pamoate 50 mg PO BID PRN 03/18/19 03/18/19 Unknown History Mirtazapine 15 mg PO HS 03/18/19 03/18/19 Unknown History Naproxen 500 mg PO Q12H 03/18/19 03/18/19 Unknown History Paliperidone [Paliperidone ER] 6 mg PO DAILY 03/18/19 03/18/19 Unknown History Phenobarbital 60 mg PO BID 03/18/19 03/18/19 Unknown History Quetiapine [Seroquel] 25 mg PO HS 03/18/19 03/18/19 Unknown History Rivaroxaban [Xarelto] 20 mg PO DAILY 03/18/19 03/18/19 Unknown History Brivaracetam [Briviact] 50 mg PO BID #120 tab 03/23/19 Unknown Rx - History of Present Illness -Gen Adult Nature of Presenting Problems: Pt. is 53 yof that presents with c/o seizure. She reports she has been out of her medications for 4 days. She states her left side is numb and weak and she has left sided facial droop. Pt. was recently admitted for seizures and stroke but there were no deficits at discharge. She is also c/o blurred vision. Location of Pain/Injury: reports: none. denies: head, face, mouth, neck, chest, upper extremity, hand(s), abdomen, back, pelvis, genitalia, lower extremity, feet, upper body, lower body, generalized, other Pain Radiation: reports: no radiation. denies: arm(s), back, buttocks, chest, epigastric, feet, groin, jaw, flank (L), legs (lower), LLQ, LUQ, neck, periumbilical, flank (R), RLQ, RUQ, shoulder(s), scapula, scrotal, sternal notch, suprapubic, legs (upper), urethral, vaginal, other Quality of Pain: reports: none. denies: aching, pressure, tightness Severity: reports: moderate. denies: mild, severe Onset/Duration: reports: abrupt, just prior to arrival Timing: reports: still present. denies: improving, intermittent, getting worse Context/Activities at Onset: reports: none. denies: light activity, moderate activity, vigorous activity, recent emotional stress, recent physical stress, recent trauma history, possible bad food, cold exposure, eating, out of country travel, rest, sleep, sexual activity, other Modifying Factors: improves with: nothing Associated Symptoms: reports: seizure, weakness (Left side). denies: denies sym ptoms, anxiety, arm pain, back/neck pain, chest pain, constipation, cough, diaphoresis, diarrhea, dizziness, EENT symptoms, fatigue, fever/chills, genitourinary problems, headaches, heartburn, joint pain, loss of appetite, malaise, muscle aches, sinus congestion/drainage, nausea, rash, shortness of breath, sensory/motor loss, pain with inspiration, swelling/mass in abdomen, syncope, vomiting, trouble walking, other Similar Symptoms Previously?: No Recently seen or treated by another doctor?: No Review of Systems - Adult - REVIEW OF SYSTEMS - ADULT Constitutional: reports: no symptoms reported Eyes: reports: see HPI, blurred vision. denies: dry eyes, double vision, redness Ears, Nose, Mouth & Throat: reports: no symptoms reported Cardiovascular: reports: no symptoms reported Respiratory: reports: no symptoms reported Gastrointestinal: reports: no symptoms reported Genitourinary: reports: no symptoms reported Musculoskeletal: reports: see HPI, muscle weakness. denies: back pain, joint swelling, muscle aches Integumentary: reports: no symptoms reported Neurological: reports: see HPI, numbness, paresthesia, seizure. denies: dizziness/vertigo, headache/migraines, tremors Psychiatric: reports: no symptoms reported Past History - Adult - PAST MEDICAL HISTORY-ADULT Review of Records: reports: Old Records Reviewed, Nursing Assessment Review, Medications Reviewed, Social history reviewed & non-contributory. Major Childhood Illnesses: reports: denies history Cardiovascular: reports: denies history Respiratory: reports: denies history Gastrointestinal: reports: denies history Obstetrical/Gynecological: reports: denies history Genitourinary: reports: denies history Musculoskeletal: reports: denies history Neurological: reports: denies history Psychiatric: reports: denies history Endocrine/Immune: reports: denies history Other Conditions: reports: denies history - PRIOR SURGERIES/PROCEDURES Surgical/Procedure History: reports: reviewed, not pertinent - IMMUNIZATION STATUS Childhood Immunizations: See Nurse Assessment Flu Vaccine: See Nurse Assessment - FAMILY HISTORY Family History: reviewed, not pertinent - SOCIAL HISTORY Smoking: quit greater than 1 year, cigarettes Provider spent 3-5 mins advising pt. on dangers of tobacco.: Discussed manners to quit use, and f/u contacts for add'l counseling. Physical Exam-General - PHYSICAL EXAM-ADULT Initial Vital Signs Reviewed: Yes - CONSTITUTIONAL General Appearance: alert, moderate distress, obese. negative: anxious, slow to respond, obtunded, combative - EYES Eyes: PERRL/EOMI, pink conjunctivae, photophobia. negative: conjuctival exudate, pale conjunctivae, subconjunctival hemorrhage - HEAD, EARS, NOSE, MOUTH & THROAT HENMT: normocephalic/atraumatic. negative: angioedema, frontal tenderness, maxillary tenderness - NECK Neck: non-tender, full range of motion, supple, normal inspection - RESPIRATORY Respiratory: lungs clear, normal breath sounds - CARDIOVASCULAR Cardiovascular: normal peripheral pulses, regular rate, rhythm, no edema - GASTROINTESTINAL (ABDOMEN) Abdominal Exam: normal bowel sounds, non tender, soft - LYMPHATIC Lymphatic: no adenopathy - MUSCULOSKELETAL Back Exam: normal inspection, no CVA tenderness, no vertebral tenderness Extremity: normal inspection. negative: deformity, erythema, inflammation, swelling, tenderness Peripheral Pulses: radial (R): 2+, radial (L): 2+ - SKIN Integumentary: normal color, normal turgor, warm/dry. negative: cyanosis, jaundice, tenderness - NEUROLOGIC Neurologic: facial droop, motor weakness, sensory deficit. negative: grossly normal, abnormal gait, aphasia - PSYCHIATRIC Psych/Mental Status: normal mood/affect, normal thought content, normal thought process, oriented x 3. negative: anxious, paranoid, tearful Progress - PLAN OF CARE/RESULTS Progress/Plan/Lab Results: Vital Signs - 8 hr 03/28/19 14:28 Temperature 99.0 F Pulse Rate 93 H Respiratory Rate 18 Blood Pressure 123/071 O2 Sat by Pulse Oximetry 94 L Result Diagrams: 03/28/19 15:03 03/28/19 15:03 - CT/MRI 1 CT Study: Head ([facility] - [address] [facility] [address] [place] [id number] [facility] - [address] [place] [address] Department of Imaging Patient: ANJU CASTILLOADM Date: 03/28/19#: [id number] : 1965ADM Status: PRE ERAcct#: [id number] Age/Sex: 53/FRoom/Bed: Loc: P.ED Ordering Physician: Kervin Kaur Family Physician: Reason for Procedure: Left side weakness Signed EXAM: CT HEAD W/O CONTRAST 03/28/2019 HISTORY: Left side weakness TECHNIQUE: This exam was performed using automated exposure control, adjustment of mA or kV according to patient size, and/or use of iterative reconstruction technique. COMMENT: The current study is compared with the previous examination of 03/18/2019. There are small lacunae in the globus pallidus bilaterally. There is no evidence of mass effect, bleed, or abnormal extra-axial fluid collection. Compared to 03/18/2019, there has been no significant change in the appearance the brain. The visualized paranasal sinuses are clear. There is persistence the metopic suture. The calvarium is intact. IMPRESSION: Chronic ischemic microvascular change. No evidence of acute intracranial disease. Electronically signed by Oskar Roblero 03/28/2019 3:06 PM 03/28/19 1506 Interpreting Physician: Oskar Roblero MD Dictated Date/Time: 03/28/19 1504 cc: Kervin Kaur;) CT Results: See note - CONSULTS/PCP/HOSPITALIST Notification #1 *Consult/PCP/Hospitalist*: Dr. Reyes Time Discussed: 16:18 Reason/Comments: Admission Consult Disposition: Will see in ED, Admit Departure - Departure Date of Disposition Decision: 03/28/19 Time of Disposition Decision: 16:18 DIAGNOSIS: Seizure, Weakness of left lower extremity, Weakness of left upper extremity, F acial droop Disposition: ADMITTED INPATIENT 09 Certified Medical Emergency: Emergent Condition: Stable Discharge Education: Steps to Quit Smoking, [id number] - Critical Care Note This patient required my direct & personal management of CC.: No Attestation - Physician/ ABDULKADIR Attestation Patient care was provided by Advanced Practice Provider:: Yes Advanced Practice Provider:: Kervin Kaur Advanced Practice Provider documentation review:: The Mid-level provider documentation, treatment plan and medical decision making was reviewed by the physician who agrees with all treatment and medical decision making by the [facility]. The physician spent face to face time with patient:: No Advanced Practice Provider documentation review:: Supervising physician onsite and consulted in the evaluation and care of this patient. The physician did not have a face to face encounter with the patient. - NIH Stroke Scale NIH Type: Initial Evaluation Level of Consciousness: 0-Alert LOC Questions (ask month and age): 0-Answers Both Correctly LOC Commands (ask to open & close eyes;make a fist, let go): 0-Obeys Both Correctly Best Gaze (horizontal eye movement): 0-Normal Visual (use finger movement, counting or visual threat): 0-No Visual Loss Facial Palsy (show teeth or raise eyebrows & close eyes tght: 2-Partial Paralysis Motor Function-left arm: 2-Some Effort Against [place] Motor Function-right arm: 0-Normal Motor Function-left le-Some Effort Against [place] Motor Function-right le-Normal Limb Ataxia(itezhe-zudf-fygzqe, or heel to hurd): 0-No Ataxia Sensory(pin prick to face,arms,trunk,legs-compare side/side): 1-Mild to Moderate Decrease in Sensation Best Language(name item/read sentence.Ex-Down to Earth): 0-No Aphasia Dysarthria(Pt read words or say words Ex.Mama,Tip-Top,Thanks: 0-Normal Articulation Extinction and Inattention: 0-Normal NIH Total Score: 6
[2019-03-28] MEDS ORDERED: ATIVAN IV ONE (14:42)
--- NOTE | 2019-03-28 15:08 | Diag Imaging Result Doc PS360 ---
EXAM: CT HEAD W/O CONTRAST 03/28/2019 HISTORY: Left side weakness TECHNIQUE: This exam was performed using automated exposure control, adjustment of mA or kV according to patient size, and/or use of iterative reconstruction technique. COMMENT: The current study is compared with the previous examination of 03/18/2019. There are small lacunae in the globus pallidus bilaterally. There is no evidence of mass effect, bleed, or abnormal extra-axial fluid collection. Compared to 03/18/2019, there has been no significant change in the appearance the brain. The visualized paranasal sinuses are clear. There is persistence the metopic suture. The calvarium is intact. IMPRESSION: Chronic ischemic microvascular change. No evidence of acute intracranial disease. Electronically signed by Oskar Roblero 03/28/2019 3:06 PM
[2019-03-28 15:18] LABS: BASO# 0.02 X1000 (0.0-0.2); BASO% 0.2 % (0.0-0.8); EOS# 0.42 X1000 (0.0-0.7); EOS% 3.3 % (0.0-10.0); HEMATOCRIT 40.3 % (37.0-47.0); HEMOGLOBIN 12.9 g/dL (12.0-16.0); IMM GRAN# 0.04 X1000 (0.0-0.04); IMM GRAN% 0.3 % (0.0-0.5); LYMPH# 1.85 X1000 (1.2-3.4); LYMPH% 14.6 % (20.5-51.1); MCH 28.6 PG (27-31); MCV 89.4 FL (81-99); MONO% 9.5 % (1.7-9.3); MPV 9.3 FL (7.4-10.4); NEUT% 72.1 % (42.2-75.2); PLT 421 X1000 (130-400); RBC 4.51 XMIL (4.2-5.4); RDW 13.9 % (11.5-14.5); WBC 12.63 X1000 (4.8-10.8)
[2019-03-28 15:29] LABS: BILIRUBIN URINE NEGATIVE (NEGATIVE); BLOOD URINE NEGATIVE (NEGATIVE); CLARITY CLEAR (CLEAR); COLOR YELLOW; GLUCOSE URINE NEGATIVE (NEGATIVE); KETONE URINE TRACE mg/dL (NEGATIVE); LEUKOCYTES URINE NEGATIVE (NEGATIVE); NITRITE URINE NEGATIVE (NEGATIVE); PROTEIN URINE TRACE mg/dL (NEGATIVE); SP GRAVITY URINE 1.015; UROBILINOGEN URINE NORMAL
[2019-03-28 15:34] LABS: INR 0.98; PROTIME 13.5 Seconds (11.0-16.0); PTT 33.8 Seconds (22.3-41.8)
[2019-03-28 15:43] LABS: URINE SOURCE CLEAN CATCH
[2019-03-28 16:11] LABS: AGAP 14; ALBUMIN 4.1 g/dL (3.5-5.0); BUN 13 mg/dL (8-22); CALCIUM 8.8 mg/dL (8.8-10.2); CHLORIDE 103 mmol/L (98-107); COSMO 277; CREATININE 0.8 mg/dL (0.5-0.9); ESTIMATED GFR > 60; GLUCOSE 95 mg/dL (70-104); GOT 20 U/L (10-30); GPT 15 U/L (10-36); POTASSIUM 3.9 mmol/L (3.5-5.1); SODIUM 139 mmol/L (136-145); TCO2 22 mmol/L (25-35); TOTAL PROTEIN 7.1 g/dL (6.3-8.3)
[2019-03-28 16:15] LABS: CK PROFILE 175 U/L (24-173)
[2019-03-28] MEDS ORDERED: TYLENOL PO ONE (16:21)
[2019-03-28 16:46] LABS: CK INDEX 1.8 (0.0-2.5); CK-MB 3.14 ng/mL (0.0-5.0)
[2019-03-28 16:58] LABS: ALKALINE PHOSPHATASE 0 U/L (32-104)
[2019-03-28 18:15] LABS: UR AMPHETAMINES QUAL NONE DETECTED (NONE DETECT); UR BARBITUATES QUAL PRESUMPTIVE POSITIVE (NONE DETECT); UR BENZODIAZEPIN QUAL NONE DETECTED (NONE DETECT); UR CANNABINOIDS QUAL NONE DETECTED (NONE DETECT); UR COCAINE QUAL NONE DETECTED (NONE DETECT); UR METHADONE QUAL NONE DETECTED (NONE DETECT); UR METHAMPHETAMINE QUAL NONE DETECTED (NONE DETECT); UR OPIATES QUAL NONE DETECTED (NONE DETECT); UR OXYCODONE QUAL NONE DETECTED (NONE DETECT); UR PCP QUAL NONE DETECTED (NONE DETECT); UR PROPOXYPHENE QUAL NONE DETECTED (NONE DETECT); UR TCA QUAL NONE DETECTED (NONE DETECT)
[2019-03-28] MEDS ORDERED: PLAVIX PO ONE (18:33)
--- NOTE | 2019-03-28 18:53 | HISTORY AND PHYSICAL ---
ADDENDUM: Patient seen and examined by myself. Full note dictated and discussed with nurse practitioner. HISTORY OF PRESENT ILLNESS: The patient presented to the hospital stating that she had 2 seizures. Notes that she has a long history of seizures. She has 5 or more partial seizures a day and 1 or 2 major seizures each month. States that after her seizure, she started having left- sided facial numbness. Denies any other focal numbness. Also states that she needs her Adderall back, because she fell asleep while doing dishes. She needs her Soma back because of her muscle spasms. Notes that she is allergic to ibuprofen and Tylenol, and she has been tested. States that 2 mg of morphine will help her headache. It appears though her facial weakness is intermittent. It seems as though she can be distracted, and the facial weakness improve. Regardless, she is having no slurred speech and no respiratory distress. We have been informed that she did not fill her medications for her seizures after being discharged on the last visit. PLAN: We are going to admit her to the hospital. Reconsult Neurology, and we will follow. cc: Morteza Reyes MD
--- NOTE | 2019-03-28 19:35 | HISTORY AND PHYSICAL ---
CHIEF COMPLAINT: Seizure. HISTORY OF PRESENT ILLNESS: This is a 53-year-old female with a longstanding history of seizures. She reports having a vagal nerve stimulator placed while living in [place]. She had previously been on Keppra, phenobarbital, and gabapentin to manage her seizures. She was hospitalized from March 18 to March 23, and medications were changed in that the Keppra was changed to Briviact along with phenobarbital and gabapentin, although the patient did not fill these medications. She comes in today after having a reported seizure that was witnessed by a roommate. She stated that her left side was numb and weak and that she had a left facial droop. CT scan revealed chronic ischemic microvascular changes with no evidence of acute intracranial disease with no significant change in appearance of the brain compared to 03/18/2019. The patient states that she has not seen a neurologist in about 2-1/2 years. She reports that her normal seizures having 5 to 8 partial seizures every night with generalized clonic seizures being daily to weekly. She stated that she has narcolepsy and that she is on Adderall for this. She also takes Soma, although she stated that her daughter steels her medications. At the same time, she states that she does not live with her daughter. She moved away from her daughter and living with friends so that her daughter would stop stealing from her. She did request multiple times that I prescribe Dilaudid,Soma, and Adderall to which we discussed that I would not prescribe these medications. PAST MEDICAL HISTORY: Seizure disorder, vagal nerve stimulator, bipolar disorder, anxiety, PTSD, DVT. SOCIAL HISTORY: She is living with friends. She does not work. She denies alcohol or illicit drugs. ALLERGIES: Ibuprofen, latex, NSAIDs, penicillin, tomato, and tramadol. HOME MEDICATIONS: A list will be obtained by the nursing staff and once verified will review and restart as appropriate. REVIEW OF SYSTEMS: Discussed with the patient with pertinent positives stated in the HPI. She denied any syncope or dizziness; any chest pain or palpitations; any fevers or chills, recent weight loss or weight gain, nausea, vomiting, diarrhea, constipation, black or bloody vomitus or stools, hematuria, dysuria, frequency, or urgency. PHYSICAL EXAMINATION: GENERAL: This is a 53-year-old female who is lying on the stretcher in the emergency room in no distress. VITAL SIGNS: Blood pressure is 123/71 with a heart rate of 93, respirations 18, temperature is 99 degrees with room air saturations 94%. EYES: Pupils are equal, round, and react to light. EOMs are intact. Sclerae are anicteric. HEENT: Head is normocephalic, atraumatic. Mucous membranes are moist. NECK: Supple with trachea midline. CARDIOVASCULAR: Regular rate and rhythm. S1 and S2 appreciated. She has no lower extremity edema. Calves are nontender bilateral with peripheral pulses palpable x4 extremities. PULMONARY: Breath sounds are clear with no increased work of breathing noted. Chest rises and falls symmetric with respiration. Chest wall is nontender to palpation. GASTROINTESTINAL: Abdomen is soft, nontender, nondistended with bowel sounds in all 4 quadrants. GENITOURINARY: No CVA or suprapubic tenderness. NEUROLOGIC: She is alert and oriented. Pupils are equal, round, and react to light. Forehead is spared. She has equal nasal flaring. No tongue nor uvula deviation. She does have a right facial droop, although this is intermittent in that it disappears during speech and returns once she stops speaking. Equal shoulder shrug. She has 5/5 muscle strength to right arm and right leg, 3/5 to left arm and left leg. She will only raise her left arm approximately 15 inches off the bed, although there is no drift once she does raise it. LABORATORY DATA: WBC is 12.6 with hemoglobin 12.9, hematocrit 40.3, platelets 421,000. Sodium 139, potassium 3.9, BUN 13, creatinine 0.8, and glucose of 75. CK is 175. Urinalysis is essentially negative. CT of the head reveals chronic ischemic microvascular change. No evidence of acute intracranial disease. ASSESSMENT AND PLAN: 1. Chronic seizure disorder. 2. Inconsistent left-sided weakness. 3. Inconsistent right facial droop. 4. History of bipolar disorder. 5. Noncompliance with medications and followup. 6. History of deep venous thrombosis on Xarelto. 7. History of prior cerebrovascular accident 8. History of breast cancer, aware. PLAN: The patient will be transferred to [facility] Medical Floor. Neurology will be consulted. We will do neuro checks per stroke protocol. She will be placed on telemetry. We will place a Choi catheter. She will be placed on seizure precautions. We will consult Physical Therapy. We are unable to perform an MRI at this time due to the patient having a vagal stimulator implanted. Plan was discussed with Dr. Reyes. Further treatments pending hospital course. Dictated by BERNA Gustafson for Morteza Reyes MD cc: BERNA Gustafson MD
[2019-03-28] MEDS: NEURONTIN PO SCH (23:42)
[2019-03-28] MEDS: SEROQUEL PO SCH (23:43)
[2019-03-28] MEDS: PHENOBARBITAL PO SCH (23:43)
[2019-03-29] MEDS ORDERED: OXY IR PO ONE (00:24)
[2019-03-29] MEDS: ZOFRAN IV PRN ×2 (01:42→15:07)
[2019-03-29] MEDS ORDERED: PLAVIX PO ONE (03:45)
[2019-03-29 07:19] LABS: BASO# 0.02 X1000 (0.0-0.2); BASO% 0.2 % (0.0-0.8); EOS# 0.42 X1000 (0.0-0.7); EOS% 5.1 % (0.0-10.0); HEMATOCRIT 38.8 % (37.0-47.0); HEMOGLOBIN 12.6 g/dL (12.0-16.0); IMM GRAN# 0.02 X1000 (0.0-0.04); IMM GRAN% 0.2 % (0.0-0.5); LYMPH# 1.91 X1000 (1.2-3.4); LYMPH% 23.3 % (20.5-51.1); MCH 29.2 PG (27-31); MCHC 32.5 g/dL (33-37); MCV 89.8 FL (81-99); MONO# 0.98 X1000 (0.11-0.59); MPV 9.2 FL (7.4-10.4); NEUT# 4.84 X1000 (1.4-6.5); NEUT% 59.2 % (42.2-75.2); PLT 385 X1000 (130-400); RBC 4.32 XMIL (4.2-5.4); RDW 14.2 % (11.5-14.5); WBC 8.19 X1000 (4.8-10.8)
[2019-03-29 07:44] LABS: AGAP 13; BUN 14 mg/dL (8-22); CALCIUM 9.1 mg/dL (8.8-10.2); CHLORIDE 104 mmol/L (98-107); CK TOTAL 133 U/L (24-173); COSMO 284; CREATININE 0.7 mg/dL (0.5-0.9); ESTIMATED GFR > 60; GLUCOSE 100 mg/dL (70-104); MAGNESIUM 1.9 mg/dL (1.5-2.7); POTASSIUM 4.2 mmol/L (3.5-5.1); SODIUM 142 mmol/L (136-145); TCO2 25 mmol/L (25-35)
[2019-03-29] MEDS: PHENOBARBITAL PO SCH ×2 (09:44→21:28)
[2019-03-29] MEDS: NEURONTIN PO SCH ×3 (09:44→21:27)
[2019-03-29 10:02] LABS: HEMOGLOBIN A1C 5.7 % (4.8-6.0)
[2019-03-29] MEDS: ATARAX PO PRN (10:51)
[2019-03-29] MEDS: NORCO-5 PO PRN ×2 (12:01→18:14)
[2019-03-29] MEDS: BRIVIACT PO SCH ×2 (15:07→21:27)
--- NOTE | 2019-03-29 15:15 | PROGRESS NOTE ---
DATE: 03/29/2019 SUBJECTIVE: This morning, Ms. Peraza refers to be doing fairly okay. However, she had a lot of concerns about the fact that she has been having multiple ykxm-zb-naet seizures and that her left face gets weaker during the attacks. Ms. Peraza was just discharged from the hospital on 03/23/2019. This is just about a week ago on brivaracetam. Unfortunately, she said she has not been able to fill this, and she has been having rjti-gl-pelz seizures at home. She says she went to also visit her primary care doctor (Dr. Mir Raygoza), and she was told that she will not be seen because she owes some money there. Since being here in the hospital, there have not been any witnessed seizures. She also has been requesting a lot of pain medications for presumed headaches. OBJECTIVELY: Current Vital Signs: Blood pressure is 112/49, pulse of 87, respirations 18, temperature 99.1 degrees. The patient is saturating 96%. General: Ms. Peraza is a 53-year-old female. She is in bed in no distress. HEENT: Mucosa is pink and moist. Anicteric. Acyanotic. Neck: Supple. Chest: Clear. Cardiovascular: Regular rate and rhythm. Abdomen: Soft. Extremities: No pedal edema. [employer]AURANT COOK: Patient is awake, alert. Did not elicit any weakness. LABORATORY DATA: Completely normal both CBC and chemistry. The patient's A1c is 5.7. ASSESSMENT: 1. Presumed breakthrough seizures. This has not been witnessed over here. However, the patient refers to have had multiple of these at home. She did not get her medications, the brivaracetam, after she got discharged. This has been restarted and we are waiting on Neurology to evaluate her. 2. History of bipolar disorder. 3. Generalized anxiety disorder. 4. Posttraumatic stress disorder. 5. Multiple psychotropic medications (polypharmacy). 6. Hypertension. PLAN: In general, I think Ms. Peraza is fairly stable. She did not buy her brivaracetam after she got discharged, and she alleges to have had multiple seizures. Will be waiting on Neurology evaluation for further recommendations. Ms Peraza was under the care of a neurologist in [facility] many years ago. She has a vagal nerve stimulator. I have advised her to get a local neurologist to follow up her care. cc: Brooks Jeronimo MD MTDKt
[2019-03-29] MEDS: XARELTO PO SCH (18:14)
[2019-03-29] MEDS: SEROQUEL PO SCH (21:28)
[2019-03-30] MEDS: ATARAX PO PRN ×2 (00:18→17:18)
[2019-03-30] MEDS: ZOFRAN IV PRN ×2 (00:18→19:02)
[2019-03-30] MEDS: NORCO-5 PO PRN ×2 (00:18→07:23)
[2019-03-30 06:45] LABS: BASO# 0.03 X1000 (0.0-0.2); BASO% 0.4 % (0.0-0.8); EOS# 0.35 X1000 (0.0-0.7); EOS% 5.2 % (0.0-10.0); HEMATOCRIT 38.7 % (37.0-47.0); HEMOGLOBIN 12.4 g/dL (12.0-16.0); IMM GRAN# 0.03 X1000 (0.0-0.04); IMM GRAN% 0.4 % (0.0-0.5); LYMPH# 1.88 X1000 (1.2-3.4); LYMPH% 27.9 % (20.5-51.1); MCV 90.4 FL (81-99); MONO# 1.11 X1000 (0.11-0.59); MONO% 16.4 % (1.7-9.3); MPV 9.3 FL (7.4-10.4); NEUT# 3.35 X1000 (1.4-6.5); NEUT% 49.7 % (42.2-75.2); PLT 395 X1000 (130-400); RBC 4.28 XMIL (4.2-5.4); RDW 14.1 % (11.5-14.5); WBC 6.75 X1000 (4.8-10.8)
[2019-03-30] MEDS: PHENOBARBITAL PO SCH ×2 (08:01→20:40)
[2019-03-30] MEDS: NEURONTIN PO SCH ×3 (08:01→20:41)
[2019-03-30] MEDS: BRIVIACT PO SCH ×2 (08:01→20:41)
[2019-03-30] MEDS ORDERED: OXY IR PO ONE ×2 (11:18→18:56)
--- NOTE | 2019-03-30 11:53 | PROGRESS NOTE ---
DATE: 03/30/2019 INTERVAL HISTORY: No acute events. SUBJECTIVE: Ms Peraza is complaining of headache on the right side, it started overnight. She states that she has had adverse reaction to NSAIDs where she had supposedly angioedema and rash so she could not tolerate NSAIDs or acetaminophen and she states that [place] is not helping her. She wants me to order some more pain medication. She also states she had 2 episodes of likely partial seizures yesterday where when she woke up she found herself at the edge of the bed and she could not remember what they were. She states she had a vagal nerve stimulator, but she does not have the remote to operate it since the remote is with her daughter and she is not in contact with her daughter. She states she went to [facility]'s pharmacy, but they did not have her antiseizure medications. PHYSICAL EXAMINATION: vital signs: Temperature 98.1 degrees, pulse 77, respiratory rate 18, blood pressure 112/40. She is saturating 95% on room air. general: Not in any acute distress. HEENT: She does have left-sided ptosis, right-sided facial droop. Oral cavity is moist. Tongue appears midline. Lungs: Air entry bilaterally equal. No wheeze, rhonchi, crackles. Cardiovascular: S1, S2 normal. No murmur, rub, or gallop. Abdomen: Soft. No nontender. Extremities: No lower extremity edema. Neurologic: She is alert and oriented x3. Otherwise nonfocal examination. LABORATORIES: CBC is normal. No BMP. No positive microbiological data. No new imaging. ASSESSMENT AND PLAN: 1. Presumed breakthrough seizures because of noncompliance with home medication. She has prior history of generalized tonic clonic and partial seizures and vagal nerve stimulation. Vagal nerve stimulator as per the history. I will continue her Brivaracetam, and phenobarbital. I will appreciate further recommendations from Neurology team. 2. History of cerebrovascular accident in 2018. I will continue her on Plavix. 3. History of deep vein thrombosis and pulmonary embolism in 2017, as per the history. I will continue her on home Xarelto. 4. History of chronic pain and bipolar mood disorder. She is listed to be taking quetiapine and gabapentin for that, which I will continue. DISPOSITION: Awaiting further Neurology recommendations. Plan of care discussed with her. All questions have been answered. Her headache is located on the right side predominantly without any residual disturbance. I will give her 1 time dose of pain medications. cc: Yg Ramos MD MTDD
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
[2019-03-30] MEDS: XARELTO PO SCH (17:16)
[2019-03-30] MEDS: SEROQUEL PO SCH (20:41)
[2019-03-31] MEDS: ZOFRAN IV PRN ×2 (02:01→08:55)
[2019-03-31] MEDS: NEURONTIN PO SCH ×2 (08:18→13:21)
[2019-03-31] MEDS: BRIVIACT PO SCH (08:50)
[2019-03-31] MEDS: PHENOBARBITAL PO SCH (08:50)
[2019-03-31] MEDS: ATARAX PO PRN (13:29)
--- NOTE | 2019-03-31 14:37 | PROGRESS NOTE ---
DATE: 03/31/2019 Ms. Peraza is young woman with self-reported longstanding seizure disorder. She reports onset of seizures shortly after . She reports recent adulthood seizures typically begin with "blinking lights" which appear to be present globally in her vision. This is followed by tingling across the left and right upper and lower lips and then a sense of numbness involving the left limbs. She will next realize she is "waking up on the floor." There has been urinary and fecal incontinence, tongue or lip biting, postictal drowsiness associated with these episodes. She reports most recent AED was levetiracetam 1000 mg t.i.d. She had tolerated that dose. She believes levetiracetam was effective over several years but seemed to be less effective recently. She has been switched to Briviact here. I encouraged her to take her medicines as directed and to keep outpatient follow-up when arranged. We discussed the [place] Law as it pertains to driving, and she told me she does not drive. I encouraged her not to get into any situation in which a seizure might result in serious injury to her or to someone else. I do not have any thing to add to Dr. Alvarez's earlier recommendations. Thanks for asking Neurology to see Ms. Peraza. cc: MD YEISON Pollard III
[2019-03-31] MEDS ORDERED: BUSPAR PO PRN (14:38)
[2019-03-31] MEDS ORDERED: VENTOLIN HFA INH PRN (14:38)
[2019-03-31] MEDS ORDERED: ATARAX PO PRN (14:57)
[2019-03-31] MEDS ORDERED: NEURONTIN PO SCH (15:00)
[2019-03-31 16:07] VITALS: BP 109/60
[2019-03-31] MEDS ORDERED: XARELTO PO SCH (17:00)
[2019-03-31] MEDS ORDERED: NAPROSYN PO SCH (18:00)
[2019-03-31] MEDS ORDERED: BRIVIACT PO SCH ×2 (21:00)
[2019-03-31] MEDS ORDERED: CYMBALTA PO SCH (21:00)
[2019-03-31] MEDS ORDERED: PHENOBARBITAL PO SCH (21:00)
[2019-03-31] MEDS ORDERED: LIPITOR PO SCH (21:00)
[2019-03-31] MEDS ORDERED: SEROQUEL PO SCH (21:00)
--- NOTE | 2019-04-01 06:35 | DISCHARGE SUMMARY ---
ADMISSION DATE: 03/28/2019 DISCHARGE DATE: 03/31/2019 DISCHARGE DISPOSITION: Home. DISCHARGE CONDITION: Hemodynamically stable. She has not had any seizures since last 48 hours. VITAL SIGNS: Temperature 98.6 degrees, pulse 84, respiratory rate 18, blood pressure 110/60. She is saturating 97% on room air. DISCHARGE INSTRUCTIONS: The patient was advised to establish care with a neurologist as well as regular doctor. She was also advised to avoid using unnecessary opioids. Opioid use disorder instructions were provided to her. DISCHARGE DIAGNOSES: 1. Suspected breakthrough seizure. 2. Headache. 3. Inconsistent left-sided weakness and right facial droop, which was correctable on distraction. 4. Noncompliance with antiseizure medications. OTHER DIAGNOSES: 1. History of deep venous thrombosis and pulmonary embolism in 2017, on Xarelto. 2. History of cerebrovascular accident in 2018. 3. History of chronic pain and bipolar mood disorder. 4. History of seizures, status post vagal nerve stimulator. DISCHARGE MEDICATIONS: The patient's medication list is not appropriately reconciled since she has been on and off several medications, some of which were not refilled recently. She was advised to follow up with her regular doctor to have a proper medication reconciliation. From our end, I advised her that she should be on Briviact 50 mg b.i.d., and phenobarbital 60 mg b.i.d. Otherwise, she is listed to be taking prazosin 1 mg at nighttime, albuterol 90 mcg every 6 hours as needed for shortness of breath, atorvastatin 40 mg at nighttime, buspirone 10 mg t.i.d. as needed, clopidogrel 75 mg daily, vitamin B12, 1000 mcg every 7 days, duloxetine 60 mg b.i.d., gabapentin 600 mg t.i.d., hydroxyzine 50 mg b.i.d. as needed, mirtazapine 50 mg at nighttime, Paliperidone 6 mg daily, phenobarbital 60 mg b.i.d., quetiapine 25 mg at nighttime, cholecalciferol 5000 unit daily, rivaroxaban 20 mg daily. SIGNIFICANT LABS: During hospital admission and discharge, WBC 6.7, hemoglobin 12.4, platelet count 395,000. BUN 14, creatinine 0.7. Urinalysis unremarkable. Urine toxicology positive for barbiturate. SIGNIFICANT IMAGING: During hospital admission, head CT on admission did not have any acute intracranial disease. There was chronic ischemic microvascular. HOSPITAL COURSE SUMMARY: Ms. Peraza is a 53-year-old lady with past medical history of seizure disorder, status post vagal nerve stimulator placed somewhere in [place], was admitted between March 18 and March 23 for seizure, when her Keppra was changed to Briviact due to her suicidal ideation and mood changes, and she was continued on phenobarbital and was discharged. However, she came back on 03/28/2019 with reported history of breakthrough seizures. The patient states that her left side was numb and weak, and she also had a left facial droop. CT scan head was unremarkable, and her neurological examination was also inconsistent. She did not have focal weakness when she was distracted. However, she had not been taking the Briviact she was discharged on. She was admitted for further observation. She also reported that she had episodes of seizure while she was inside the hospital at nighttime which were not witnessed. She was continued on Briviact and she had 48 hours of seizure-free. During hospital admission, she kept on demanding opioid pain medication for one or the other problem, including headache, which were not given to her. She states she was not able to fill the Briviact prescription because [facility] pharmacy did not have it. I had the nurse call the pharmacy and we were informed that they do have it in their stock and patient had stated that she would fill it and her caregiver was on her way to get that prescription. At the time of discharge, the patient will be discharged on Briviact and phenobarbital for her seizures. A lot of her medications could not be reconciled because she has not been very compliant. She was advised to establish care with a neurologist, whom she has not seen in the last 2 years. TIME SPENT: More than 30 minutes spent discharging this patient. Plan of care was discussed with her. All questions were answered satisfactorily. cc: Yg Ramos MD
[2019-04-01] MEDS ORDERED: PLAVIX PO SCH (09:00)
== END 2019-03-31 17:46 | disposition home or self-care (01) | DRG 101 ==
LOC: P.ED 14:13 → P.MEDSURG 20:34 → SUATTDRO 20:34 → 3N 21:27
PROVIDERS: ATTEND Internal Medicine